=== PATIENT | female | born 1975 | race Caucasian/White ===

== ENCOUNTER 2016-11-16 14:19 | Emergency (ER) | payer BC, OTHER ==
[~2016-11-16] VITALS: Ht 170.2 cm; Wt 61.6 kg
[2016-11-16 14:32] VITALS: TEMP 37; Ht 170.2 cm; Wt 61.6 kg
[2016-11-16] MEDS ORDERED: ACET-1256 PO (15:01)
[2016-11-16] MEDS ORDERED: IBUP-1050 PO (15:01)
[2016-11-16] MEDS ORDERED: XYLOCAINE 1%/SOD BICARB 20 ML VIAL INFIL ONE (15:15)
[2016-11-16 15:21] LABS: BASO % 0.3 %; BASO ABS # 0.02 K/uL (0-0.2); COMPLETE YES; EOS % 0.6 %; HEMATOCRIT 41.9 % (37-47); IG% 0.1 %; LYMPH % 27.1 %; LYMPH ABS # 2.09 K/uL (1.2-3.4); MEAN CELL VOLUME 88.2 fL (80-100); MEAN CORPUSCULAR HEMOGLOBIN 30.3 pg (25-34); MEAN CORPUSCULAR HGB CONC 34.4 g/dl (32-36); MEAN PLATELET VOLUME 11.4 fL (7.4-10.4); MONO % 10.1 %; NEUT % 61.8 %; PLATELET COUNT 191 K/uL (130-400); RED BLOOD COUNT 4.75 M/uL (4.2-5.4)
[2016-11-16 15:48] LABS: BUN/CREATININE RATIO 13.6 (10-20); CREATININE 0.54 mg/dl (0.60-1.20); POTASSIUM 3.5 mmol/L (3.5-5.1)
--- NOTE | 2016-11-16 15:50 | DIAGNOSTIC IMAGING REPORT ---
RIGHT HEEL MIN 2 VIEWS, LEFT HEEL MIN 2 VIEWS CLINICAL HISTORY: heel infection/evaluate for osteomyelitis Right COMPARISON STUDY: None. FINDINGS: There are 3 cm skin blisters at the plantar aspect of the heels. No radiopaque foreign bodies. No underlying bony destruction to suggest osteomyelitis. Plantar heel spurs. IMPRESSION: Bilateral plantar heel skin blisters. No underlying bony abnormality. Electronically signed by: Jason Smith M.D. 11/16/2016 3:48 PM Dictated Date/Time: 11/16/2016 3:46 PM
--- NOTE | 2016-11-16 16:05 | EMERGENCY ROOM VISIT NOTE ---
History First contact with patient: 14:58 Chief Complaint: FOOT PAIN Stated Complaint: PLANTAR WART - INFECTION (?) History of Present Illness The patient is a 41 year old female who presents to the Emergency Room with complaints of bilateral heel pain. The patient states that she has had plantars warts on both her heels 4 years. She thought she had them: But then they came back. They've been back for a month at least. It for the last 2 weeks she has been applying apple cider vinegar. She went to her family doctor today and he sent her to the emergency room to evaluate for infection. The patient denies any fever. The patient denies any cough or chest pain. She is not diabetic. Review of Systems 6 system review was performed and was negative unless stated otherwise in history of present illness. 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 MENTAL Status: Alert and oriented 3. NECK: Supple, no lymphadenopathy noted. No carotid bruits noted. LUNGS: Clear auscultation without wheezes rales or rhonchi. CARDIAC: Regular rate and rhythm without murmur. Pulses is full and equal throughout. Bilateral heels: On the plantar surface there is a 3 cm fluctuant mass which is yellow in color as well as white around the edges. There is some mild surrounding erythema. No streaking on the bottom of the foot or up the leg. Both heels are similar in appearance. I do not appreciate any black spots on exam. Medical Decision & Procedures ER Provider Diagnostic Interpretation: RIGHT HEEL MIN 2 VIEWS, LEFT HEEL MIN 2 VIEWS CLINICAL HISTORY: heel infection/evaluate for osteomyelitis Right COMPARISON STUDY: None. FINDINGS: There are 3 cm skin blisters at the plantar aspect of the heels. No radiopaque foreign bodies. No underlying bony destruction to suggest osteomyelitis. Plantar heel spurs. IMPRESSION: Bilateral plantar heel skin blisters. No underlying bony abnormality. RIGHT HEEL MIN 2 VIEWS, LEFT HEEL MIN 2 VIEWS CLINICAL HISTORY: heel infection/evaluate for osteomyelitis Right COMPARISON STUDY: None. FINDINGS: There are 3 cm skin blisters at the plantar aspect of the heels. No radiopaque foreign bodies. No underlying bony destruction to suggest osteomyelitis. Plantar heel spurs. IMPRESSION: Bilateral plantar heel skin blisters. No underlying bony abnormality. Electronically signed by: Jason Smith M.D. 11/16/2016 3:48 PM Electronically signed by: Jason Smith M.D. 11/16/2016 3:48 PM Laboratory Results 11/16/16 15:15 Red Blood Count 4.75, Mean Corpuscular Volume 88.2, Mean Corpuscular Hemoglobin 30.3, Mean Corpuscular Hemoglobin Concent 34.4, Mean Platelet Volume 11.4, Neutrophils (%) (Auto) 61.8, Lymphocytes (%) (Auto) 27.1, Monocytes (%) (Auto) 10.1, Eosinophils (%) (Auto) 0.6, Basophils (%) (Auto) 0.3, Neutrophils # (Auto ) 4.75, Lymphocytes # (Auto) 2.09, Monocytes # (Auto) 0.78, Eosinophils # (Auto ) 0.05, Basophils # (Auto) 0.02 11/16/16 15:15 Test 11/16/16 15:15 White Blood Count 7.70 K/uL (4.8-10.8) Red Blood Count 4.75 M/uL (4.2-5.4) Hemoglobin 14.4 g/dL (12.0-16.0) Hematocrit 41.9 % (37-47) Mean Corpuscular Volume 88.2 fL (80-100) Mean Corpuscular Hemoglobin 30.3 pg (25-34) Mean Corpuscular Hemoglobin Concent 34.4 g/dl (32-36) Platelet Count 191 K/uL (130-400) Mean Platelet Volume 11.4 fL (7.4-10.4) Neutrophils (%) (Auto) 61.8 % Lymphocytes (%) (Auto) 27.1 % Monocytes (%) (Auto) 10.1 % Eosinophils (%) (Auto) 0.6 % Basophils (%) (Auto) 0.3 % Neutrophils # (Auto) 4.75 K/uL (1.4-6.5) Lymphocytes # (Auto) 2.09 K/uL (1.2-3.4) Monocytes # (Auto) 0.78 K/uL (0.11-0.59) Eosinophils # (Auto) 0.05 K/uL (0-0.5) Basophils # (Auto) 0.02 K/uL (0-0.2) RDW Standard Deviation 38.4 fL (36.4-46.3) RDW Coefficient of Variation 12.0 % (11.5-14.5) Immature Granulocyte % (Auto) 0.1 % Immature Granulocyte # (Auto) 0.01 K/uL (0.00-0.02) Anion Gap 7.0 mmol/L (3-11) Est Creatinine Clear Calc Drug Dose 130.6 ml/min Estimated GFR () 134.0 Estimated GFR (Non- 115.6 BUN/Creatinine Ratio 13.6 (10-20) Calcium Level 9.0 mg/dl (8.5-10.1) Procedure I&D of both heels The area was prepped with Betadine 3. Both heels were anesthetized with 1% buffered lidocaine. A 16-gauge needle was inserted into the left heel first and clear fluid was expressed smelling of vinegar. A culture was obtained. The same procedure was done to the right heel with same results. Antibiotic ointment and bandage were applied. Patient tolerated procedure well. ED Course The patient was evaluated. Patient's EMR and med list were reviewed. IV access was obtained. CBC and differential and renal profile was ordered. X- rays of both heels were ordered and evaluated by the radiologist and myself as above without any evidence of osteomyelitis. Labs are reviewed and were unremarkable.. See procedure note. The patient was informed of all findings. Antibiotic ointment and bandages were applied to both heels. The patient was discharged home in stable condition. Medical Decision Differential diagnosis include abscess, cellulitis, plantars wart, osteomyelitis Impression Primary Impression: Plantar wart of both feet Departure Information Dispostion Home / Self-Care Condition GOOD Referrals Terry Reyna PA-C (PCP) Weikert, Rachana E.,D.P.M. Forms HOME CARE DOCUMENTATION FORM, IMPORTANT VISIT INFORMATION Patient Instructions My [facility] Additional Instructions Recommend follow-up with podiatry as soon as possible. Keep area covered for 2 days to make sure they do not get infected. Tylenol or Advil as needed for pain.
[2016-11-16 16:21] VITALS: BP 139/97; PULSE 86; O2SAT 99
== END 2016-11-16 16:23 | disposition home or self-care (01) ==
LOC: C.EDB 14:26 → C.EDD 16:23
DX: B07.0 Plantar wart (principal); Z87.891 Personal history of nicotine dependence